=== PATIENT | male | born 1950 | race Caucasian/White ===

== ENCOUNTER 2017-01-26 07:11 | Inpatient (IN) ==
[~2017-01-26 07:11] MED LIST: ACETAMINOPHEN 500 MG TABLET PO ONE; CLINDAMYCIN PB 900 MG/50 ML BAG IV ONE; DEXAMETHASONE 4 MG/ML INJECTION IVP ONE; FAMOTIDINE PB 20 MG/50 ML BAG IV ONE; LIDOCAINE 1% (10mg/ml) 2mL INJ PF SDV ID ONE; METOCLOPRAMIDE 10mg/2ml INJECTION IVP ONE; NOZIN NASAL SWAB NAS ONE; ONDANSETRON 4 MG/2 ML INJECTION IVP ONE; TRANEXAMIC ACID 1,000 MG in NS 100 ML IV ONE
[2017-01-26] MEDS ORDERED: VANCOMYCIN 1,000 MG INJECTION ONE (07:17)
--- OUTSIDE RECORDS SUMMARY | 2017-01-26 07:18 | External Medical Summary | Referral Summary ---
:1950 Author Organization [facility], [facility] Address [address] [place] [address] [place] [id number] Care Team Providers Name Role Phone No PCP, States Primary Care Physician Encounter VC Date(s): 07/18/16 - 07/18/16 [facility], [address] [place] [phone] [place] Discharge Diagnosis: Elevated blood pressure Discharge Diagnosis: Nasopharyngitis Discharge Disposition: 01-Home or Self Care Attending Physician: Yony Carrera DO Admitting Physician: Yony Carrera DO Vital Signs Most recent to oldest [Reference Range]: 1 Temperature Tympanic [36.6-38.1 degC] 36.7 degC (07/18/16 11:01 AM) Peripheral Pulse Rate [60-100 bpm] 89 bpm (07/18/16 11:01 AM) Blood Pressure [90-140/60-90 mmHg] 152/98 mmHg *HI* (07/18/16 11:01 AM) SpO2 94 % (07/18/16 11:01 AM) Problem List Condition Effective Dates Status Health Status Informant Obesity(Confirmed) Active patient Allergies, Adverse Reactions, Alerts Substance Reaction Severity Status penicillin hives Active Medications citalopram Oral, Daily, 0 Refill(s) Start Date: 07/18/16 Status: OrderedDayQuil Cough mg, Oral, q8hr, 0 Refill(s) Start Date: 07/18/16 Status: OrderedNyquil Cold & Flu caps, Oral, q6hr, 0 Refill(s) Start Date: 07/18/16 Status: Ordered Results No data available for this section Immunizations No data available for this section Procedures No data available for this section Social History Social History Type Response Smoking Status Never smoker Assessment and Plan Extracted from: Title: Office Visit Note Author: Yony Carrera DO Date: 07/18/16 Assessment/Plan 1.Nasopharyngitis 1. This appears to be viral. 2. Continue with supportive care 3. follow up if worsening Ordered: Office Visit Level 3 Est 56953 2.Elevated blood pressure 1. Discontinue with the decongestant use. 2. Follow up in the office when feeling better. If pressures continue to be elevated then we plan on starting him on blood pressure medication. Ordered: Office Visit Level 3 Est 37621
--- NOTE | 2017-01-26 07:49 | Anesthesia Preoperative Report ---
Anesthesia Preoperative Record - Date and Time Date: 01/26/17 Preoperative Diagnosis: Primary degen arthritis/DJD Rt knee, M17.11 NPO Since Date: 01/25/17 NPO Since Time: 22:00 Allergies/Adverse Reactions: Allergies Allergy/AdvReac Type Severity Reaction Status Date / Time doxycycline AdvReac Intermediate UPSET Verified 12/30/16 15:51 STOMACH Penicillins AdvReac Intermediate HIVES Verified 12/30/16 15:51 naproxen [From Aleve] AdvReac Unknown Hypertensio Verified 01/14/17 13:55 n - Vital Signs Vital Signs: Temperature 97.8 F 01/26/17 07:26 Pulse Rate 49 L 01/26/17 07:40 Respiratory Rate 18 01/26/17 07:26 Blood Pressure 139/75 01/26/17 07:26 Pulse Oximetry 94 01/26/17 07:26 Oxygen Delivery Method Room Air Height and Weight: Height 1.92 m Weight 110.6 kg Body Mass Index 30.0 - Medications Inpatient Medications: Current Medications Lactated Ringer's (Lactated Ringers) 1,000 mls @ 50 mls/hr IV .Q20H DOROTEO Epinephrine HCl 0.25 mg/Bupivacaine HCl 30 ml/Morphine Sulfate 15 mg/Ketorolac Tromethamine 60 mg/Sodium Chloride 65.25 mls @ 0 mls/hr OPSITE INTRAOP ONE; Per Protocol PRN Reason: Protocol Stop: 01/26/17 08:01 Sodium Chloride (Iv Flush) 10 - 80 ml IVF PRN PRN PRN Reason: Flushing Home Medications: Home Medications Medication Instructions Recorded Confirmed Type Citalopram Hydrobromide 20 mg PO DAILY #0 tab 07/20/16 01/26/17 History [Citalopram HBr] Chlorthalidone 25 mg PO Q2D 01/14/17 01/26/17 History Lisinopril 20 mg PO DAILY 01/14/17 01/26/17 History Metoprolol Succinate 50 mg PO DAILY 01/14/17 01/26/17 History Simvastatin [Simvastatin] 20 mg PO HS 01/14/17 01/26/17 History Vitamin B Complex [Super B-50 1 cap PO DAILY 01/14/17 01/26/17 History Complex] Is Patient on Beta Curtis?: Yes Beta Curtis Last Dose Date/Time: 01/26/2017 @ 0630 - Medical History Respiratory: Reports: Sleep Apnea (no CPAP), Other (allergies) Cardiovascular: Reports: Hypertension, High Cholesterol Gastrointestional: Reports: Gastroesophageal Reflux Disease (well controlled), Morbid Obesity (obese with BMI 30) Neuro/Musculoskeletal: Reports: Depression Other History: Reports: Other (anemia) - Surgical History GI Surgery/Treatments: Reports: Appendectomy, Colonoscopy (x2), EGD Musculoskeletal Surgery/Tx: Reports: Carpal Tunnel Release (bilateral), Knee Arthroscopy, Other (trigger finger release) Anesthesia Reactions: None Hx Family Anesthesia Reaction: No History of Motion Sickness: No - Social History Smoking Status: Never smoker Hx Chewing Tobacco Use: No Second Hand Exposure: No Substance Use Type: does not use Alcohol Intake Frequency: does not drink - Pertinent Findings Laboratory: CBC and BMP 01/26/17 07:36 - Physical Exam Respiratory Exam: Present: lungs clear, bilateral breath sounds equal Cardiovascular Exam: Present: regular rate and rhythm - Airway Assessment Mallampati Score: I TMD: 3 Fingerbreadths Neck Extension: fair Overall Assessment: no airway concerns - ASA ASA Score: 3 - Plan Plan: SAB vs GA with adductor canal block Anesthesia: General Inhalation Gases, Regional Block, Neuroaxial Peripheral Nerve Block: Saphenous-Right - Discussion Discussion: Discussed risks/options/alternatives of anesthesia and questions answered. Patient consents. Nursing pain assessment noted. Attestation Statement: Prior to the delivery of any anesthetic medication, I examined the patient, developed the plan, obtained the patient's consent and discussed the risk and benefits of the procedure with the patient/guardian. - Additional Information Seen by Anesthesia: Yes
[2017-01-26] MEDS: LR 1,000 ML IV SCH ×2 (07:55→10:08)
[2017-01-26] MEDS ORDERED: EPINEPHrine 0.25 MG, BUPIVACAINE 0.25% PF 30 ML, MORPHINE SULFATE 15 MG, KETOROLAC INJ ... OPSITE ONE (08:00)
[2017-01-26] MEDS ORDERED: FentaNYL 100 MCG/2 ML INJECTION ONE (08:30)
[2017-01-26] MEDS ORDERED: MIDAZOLAM 2mg/2ml INJECTION ONE (08:30)
[2017-01-26] MEDS ORDERED: KETAMINE 500 MG/10 ML INJECTION ONE (08:30)
[2017-01-26] MEDS ORDERED: ROPIVACAINE 0.5% (5mg/ml) 30ml INJ ONE (08:31)
[2017-01-26] MEDS ORDERED: PROPOFOL 500 MG/50 ML VIAL IV ONE ×2 (08:31→09:55)
[2017-01-26] MEDS ORDERED: GLYCOPYRROLATE 0.4 MG/2 ML INJECTION ONE (09:14)
[2017-01-26] MEDS ORDERED: EPHEDRINE 50mg/ml INJECTION ONE (09:52)
[2017-01-26] MEDS ORDERED: HYDROMORPHONE 2 MG/ML INJECTION IVP PRN (10:19)
[2017-01-26] MEDS ORDERED: VANCOMYCIN 1,000 MG INJECTION IAR ONE (11:01)
[2017-01-26] MEDS ORDERED: PROPOFOL 20 ML ONE (11:06)
--- NOTE | 2017-01-26 11:21 | Operative Note ---
- Procedure Side: right Preoperative Diagnosis: knee primary DJD Postoperative Diagnosis: Same as preoperative diagnosis. Operation: total knee arthroplasty Surgeon: Rand Irizarry MD Product Inspection Supervisor: Josep Herrera Complications: None. Regional/Trunk Block: Spinal Peripheral Nerve Block: Saphenous-Right Estimated Blood Loss: See Anesthesia Record. Fluids: Please see Anesthesia Record. Description of Procedure: Mr. Saldivar and his right knee were identified and marked in the preoperative holding area. He was brought back to the operating suite and placed supine on the operating table after spinal anesthetic was administered. The right lower extremity was prepped and draped in my normal sterile fashion. Timeout was performed. He has fixed varus deformity. An anterior midline incision followed by medial parapatellar arthrotomy was performed. He had complete loss of cartilage in the medial compartment. He had significant osteophyte formation both medially and laterally. As well as around the patella. I then placed the tibial array due to poke holes in the mid tibia. The femoral array was placed into the medial femoral metaphysis area checkpoints were placed and the bone was pressure with the robot. The knee was taken through range of motion is deformity was corrected in extension and flexion. We then balanced the knee using the preoperative CT scan by rotating R femur and placing our tibia and agree with varus. The patella was then resurfaced with the knee in extension. With the knee back in flexion our bone cuts were made using the robotic arm. At this point remaining osteophytes and meniscus were removed the trial components were placed. After a partial release of the PCL he was well balanced and patella tracked well. The leg was exsanguinated and the tourniquet inflated 250 mmHg. The bone wasn't prepared for cementing and components were cemented into place and allowed to cure in extension. Joint cocktail was injected throughout soft tissue during the case. Betadine solution was also used for irrigation during the case. The tourniquet was let down and hemostasis obtained with electrocautery. After the cement had cured knee again was taken through range of motion was well balanced and patella tracked well. 1 g of vancomycin was placed into the knee joint before the capsulotomy was closed with #1 Vicryl. The left my life enrichment assistant closed subcutaneous tissue with 2-0 Vicryl in a running 4- 0 Monocryl in the skin followed by Dermabond and a sterile dressing. The drapes removed and he was taken to recovery room under the care of anesthesia.
--- NOTE | 2017-01-26 11:37 | History & Physical Update ---
- History and Physical Update Date: 01/26/17 Update: I evaluated this patient and found no changes in the history and clinical exam findings. The treatment plan and recommendations are also unchanged from the previous documentation.
--- NOTE | 2017-01-26 12:03 | Anesthesia Procedure Note ---
Peripheral Nerve Blockade - Procedure Physician: Derrick Irizarry MD Date: 01/26/17 Discussion: Discussed risks/options/alternatives of anesthesia and questions answered. Patient consents. Nursing pain assessment noted. Block Start: 11:51 Block Stop: 11:55 Blocked Employed: Adductor Canal, Single Injection Indication: Post-Operative Pain Approach: Right Side Confirmed Position: Supine Patient: Consent, Risks/Benefits Discussed, Informed, Post Block Act. Discussed IV Sedation: No (post op) Sedation: Sedate w/Meaningful Contact Initial Vital Signs: Temperature 97.8 F 01/26/17 07:26 Temperature Source Oral 01/26/17 07:26 Pulse Rate 57 L 01/26/17 07:26 Respiratory Rate 18 01/26/17 07:26 Blood Pressure 139/75 01/26/17 07:26 Blood Pressure Mean 96 01/26/17 07:26 Blood Pressure Position Sitting 01/26/17 07:26 Pulse Oximetry 94 01/26/17 07:26 Oxygen Delivery Method 01/26/17 07:26 Post Vital Signs: Temperature 97.8 F 01/26/17 07:26 Pulse Rate 49 L 01/26/17 07:40 Respiratory Rate 18 01/26/17 07:26 Blood Pressure 139/75 01/26/17 07:26 Pulse Oximetry 94 01/26/17 07:26 Oxygen Delivery Method Room Air Prep: Chlorhexadine/ETOH, Sterile Technique Ultrasound Used?: Yes - Nerve Simulator Muscle Response: No Paresthesia/Pain: None - Injectate Ropivacaine (%): 0.5 Ropivacaine (mL): 20 Was Epi 1:200,000 Used?: No Injection: Injection made incrementally with constant monitoring and aspiration every ml
--- NOTE | 2017-01-26 12:28 | XRay Report ---
Indication: postoperative image PROCEDURE: XR knee RT 2V: Encounter: Initial Comparison: September 16, 2016 Findings: Postoperative changes of right total knee replacement are seen. There is expected postoperative subcutaneous gas. No evidence of hardware failure or acute fracture. No retained radiopaque surgical instruments or sponges. Overlying material causing artifact. Impression: New right total knee prosthesis without evidence of immediate complication. .
[2017-01-26] MEDS ORDERED: LORazepam 1 MG TABLET PO PRN (12:40)
[2017-01-26] MEDS ORDERED: DiphenhydrAMINE 50 MG/ML INJECTION IVP PRN (12:40)
[2017-01-26] MEDS ORDERED: ONDANSETRON 4 MG/2 ML INJECTION IVP PRN (12:40)
[2017-01-26] MEDS ORDERED: DiphenhydrAMINE 25 MG CAPSULE PO PRN (12:40)
[2017-01-26] MEDS ORDERED: NOZIN NASAL SWAB NAS ONE (12:40)
[2017-01-26] MEDS ORDERED: NAPROXEN 220 MG TABLET PO PRN (12:40)
[2017-01-26] MEDS: NS 1,000 ML IV SCH (12:41)
--- NOTE | 2017-01-26 12:42 | Anesthesia Postoperative Note ---
- Date and Time Date: 01/26/17 Time: 12:20 - Status Patient Participated in Evaluation: Patient Participated in Person Vital Signs: Temperature 96.8 F 01/26/17 12:24 Pulse Rate 51 L 01/26/17 12:20 Respiratory Rate 15 01/26/17 12:20 Blood Pressure 97/56 01/26/17 12:20 Pulse Oximetry 95 01/26/17 12:20 Oxygen Delivery Method Nasal Cannula Oxygen Flow Rate 2 Respiratory Function: Airway Patent, Regular Respirations Cardiovascular Function: Regular Pulse Mental Status: Alert and Oriented Pain Intensity: 0 Hydration: IV Infusing Complications During Recover: None Apparent - Follow-Up Instructions Instructions: Per Surgeon
[2017-01-26] MEDS: CHLORTHALIDONE 25 MG TABLET PO SCH (12:44)
[2017-01-26] MEDS: ACETAMINOPHEN 325 MG TABLET PO SCH ×3 (12:44→21:15)
[2017-01-26] MEDS: NOZIN NASAL SWAB NAS SCH ×2 (13:02→21:15)
[2017-01-26] MEDS: Oxycodone *IR* 5 MG TABLET PO PRN ×2 (14:06→22:36)
[2017-01-26] MEDS: CLINDAMYCIN PB 900 MG/50 ML BAG IV SCH ×2 (14:59→21:14)
[2017-01-26] MEDS ORDERED: SALINE FLUSH 10ml SYRINGE IVF PRN (15:27)
[2017-01-26] MEDS ORDERED: FAMOTIDINE 20 MG TABLET PO SCH (21:00)
[2017-01-26] MEDS ORDERED: SENNOSIDES 8.6 MG TABLET PO SCH (21:00)
[2017-01-26] MEDS ORDERED: SIMVASTATIN 20 MG TABLET PO SCH (21:00)
[2017-01-26] MEDS: ASPIRIN *EC* 325 MG TABLET PO SCH (21:16)
[2017-01-26] MEDS: DOCUSATE SODIUM 100 MG CAPSULE PO SCH (21:16)
[2017-01-27] MEDS: NS 1,000 ML IV SCH (02:53)
[2017-01-27] MEDS: CLINDAMYCIN PB 900 MG/50 ML BAG IV SCH (02:54)
[2017-01-27] MEDS: NOZIN NASAL SWAB NAS SCH ×2 (05:40→15:44)
[2017-01-27] MEDS: Oxycodone *IR* 5 MG TABLET PO PRN ×3 (05:48→13:27)
[2017-01-27] MEDS ORDERED: FALL RISK - PHARMACY CONSULT XX ONE (07:45)
--- NOTE | 2017-01-27 07:55 | Orthopedic Progress Note ---
Date: Subjective/Severity of Illness: Shawn is doing well. He has only needed a couple doses of pain medication and states he prefers not to take anything. Denies CP, SOA or dypsnea. He reports that he has a cough with allergies this time of year. He was up several times with good tolerance. No other concerns or problems. Orthopedic Objective PO Vital signs: Temperature 97.7 F 01/27/17 07:48 Pulse Rate 55 L 01/27/17 07:48 Respiratory Rate 20 01/27/17 07:48 Blood Pressure 146/72 H 01/27/17 07:48 Pulse Oximetry 97 01/27/17 07:48 Height and Weight: Height 6 ft 3.5 in Weight 215 lb 6.266 oz Body Mass Index 30.0 - Constitutional General Appearance: Present: alert, no acute distress - Respiratory Exam Present: non-labored - Cardiovascular Exam Present: pedal pulses intact Capillary Refill: < 2-3 Seconds - Extremities Exam Extremities: Present: pulses intact. Absent: calf tenderness - Surgical Site Incision: Mepilex dressing intact, no drainage - Neurological Exam Present: no deficits - Psychiatric Exam Present: alert - Labs Result Diagrams: 01/27/17 04:12 01/27/17 04:12 Abnormal lab results 01/26/17 01/27/17 01/27/17 Range/Units 07:36 04:12 04:12 WBC 13.9 H D (4.5-11.0) T/MM3 RBC 3.72 L (4.50-5.90) M/MM3 Hgb 11.8 L D (13.5-17.5) GM/DL Hct 35.0 L D (41-53) % BUN 22.0 H 23.0 H (9-20) MG/DL Glucose 135 H (75-110) MG/DL Calculated Osmolality 281 H (261-280) MOSM/KG Calcium 8.3 L (8.4-10.2) MG/DL H & H 01/26/17 01/27/17 Range/Units 07:36 04:12 Hgb 13.5 11.8 L D (13.5-17.5) GM/DL Hct 40.9 L 35.0 L D (41-53) % Orthopedic Assessment and Plan (1) Primary osteoarthritis of right knee Status: Acute Assessment and Plan: Current anti-coagulation protocol for VTE prophylaxis. SCD's. WBC slightly elevated. Expected to be a stress response to surgery and IV steroids pre op. He is afebrile and has no clinical s/sx of infection. PT/OT services to improve independent function. Discharge Planning per Case Management. - Anticoagulation Therapy Anticoagulation: ASA 325 mg PO BID x6 weeks Hospital Course Summary Disclaimer: The visit summary below is not to be considered part of the above Progress Note.
[2017-01-27] MEDS: DOCUSATE SODIUM 100 MG CAPSULE PO SCH (08:57)
[2017-01-27] MEDS: ASPIRIN *EC* 325 MG TABLET PO SCH (08:57)
[2017-01-27] MEDS: CHLORTHALIDONE 25 MG TABLET PO SCH (08:57)
[2017-01-27] MEDS: ACETAMINOPHEN 325 MG TABLET PO SCH ×2 (08:58→12:14)
[2017-01-27] MEDS ORDERED: LISINOPRIL 20 MG TABLET PO SCH (09:00)
[2017-01-27] MEDS ORDERED: CITALOPRAM 20 MG TABLET PO SCH (09:00)
[2017-01-27] MEDS ORDERED: POLYETHYL GLYCOL 3350 17gm PACKET PO SCH (09:00)
[2017-01-27] MEDS ORDERED: SENNOSIDES 8.6 MG TABLET PO PRN (11:38)
[2017-01-27 12:30] VITALS: BP 117/67; PULSE 49; RESP 16; TEMP 97.3; O2SAT 92
--- NOTE | 2017-01-27 14:55 | Discharge Summary ---
Orthopedic Discharge Info Date of admission: 01/26/17 07:11 Primary care physician: Yony Carrera DO Attending Physician: Derrick Irizarry MD Consults: 01/26/17 06:46 Consult to Anesthesiology [CONS] Routine Consulting Provider: BETH Bhakta Reason For Exam: Preoperative Assessment 01/26/17 12:40 Case Management Consult [CONS] Routine Reason For Exam: Discharge Planning DME-Walker [CONS] Routine Height: 6 ft 3.5 in Weight: 243 lb 13.3 oz Comment: change dressing in 2 weeks Total Joint Outpatient Therapy [CONS] Routine Comment: change dressing in 2 weeks - Discharge Diagnosis (1) Primary osteoarthritis of right knee Status: Acute - Procedures Procedures: Right TKA - Laboratory Result Diagrams: 01/27/17 04:12 01/27/17 04:12 Laboratory: Abnormal lab results 01/27/17 01/27/17 Range/Units 04:12 04:12 WBC 13.9 H D (4.5-11.0) T/MM3 RBC 3.72 L (4.50-5.90) M/MM3 Hgb 11.8 L D (13.5-17.5) GM/DL Hct 35.0 L D (41-53) % BUN 23.0 H (9-20) MG/DL Glucose 135 H (75-110) MG/DL Calcium 8.3 L (8.4-10.2) MG/DL H & H 01/26/17 01/27/17 Range/Units 07:36 04:12 Hgb 13.5 11.8 L D (13.5-17.5) GM/DL Hct 40.9 L 35.0 L D (41-53) % Orthopedic Discharge HPI - HPI Comments This patient was admitted for elective surgical tx of end stage degenerative joint disease that failed to respond to conservative treatment. Further details of this is found in the admission H&P. Orthopedic Hospital Course Hospital course: 01/27/17 14:54 After appropriate preoperative clearance and signing of operative consent, the patient was given IV antibiotics, according to orthopedic protocol. The patient was taken to the operating room and underwent elective joint arthroplasty. Following surgery, antibiotics were discontinued less than 24 hours according to joint protocol. Appropriate anticoagulants were initiated and SCDs added for DVT prevention. The dressing was clean, dry, and intact. Pain control was obtained via multimodal approach. Bowel motivation addressed with scheduled and PRN medications. Early mobilization was initiated through PT services. Discharge arrangements made by a collaborative effort between the patient and Case Management. Follow-up is scheduled in 2-3 weeks. Discharge instructions given by orthopedic providers and nursing staff at discharge. Discharge condition was good. Ongoing care required?: Yes - Postoperative Anemia patient received IVF, labs monitored daily, no intervention required, HGB drop- acceptable - Leukocytosis due to preoperative IV Decadron Discharge Plan - Med Rec/Dispo Referrals/Follow Up: Derrick Irizarry MD [Physician] - 02/17/17 1:00 pm Additional Instructions: [facility] ON 01/29/2017 AT 9:45AM FOR PHYSICAL THERAPY EVAL. PLEASE COMPLETE THE PAPERWORK IN THE [facility] [place]IOR TO THE APPOINTMENT. PHONE [phone] Prescriptions: No Action Citalopram Hydrobromide [Citalopram HBr] 20 mg PO DAILY #0 tab Famotidine 20 mg PO HS #30 tab Lisinopril 20 mg PO DAILY Chlorthalidone 25 mg PO Q2D Aspirin [Aspirin EC] 1 tab PO DAILY #100 tab Metoprolol Succinate 50 mg PO DAILY Simvastatin [Simvastatin] 20 mg PO HS Vitamin B Complex [Super B-50 Complex] 1 cap PO DAILY
--- NOTE | 2017-01-27 14:59 | Discharge Instructions ---
Discharge Plan - Med Rec/Dispo Referrals/Follow Up: Derrick Irizarry MD [Physician] - 02/17/17 1:00 pm Additional Instructions: [facility] ON 01/29/2017 AT 9:45AM FOR PHYSICAL THERAPY ISSA. PLEASE COMPLETE THE PAPERWORK IN THE [facility] [place] [facility] PRIOR TO THE APPOINTMENT. PHONE [phone] Prescriptions: New Aspirin *EC* [Ecotrin] 325 mg PO BID #60 tab Oxycodone *Ir* [Roxicodone *Ir*] 5 - 15 mg PO Q3H PRN #60 tab PRN Reason: Breakthrough Pain Acetaminophen [Tylenol] 650 mg PO QID #100 tab Continue Citalopram Hydrobromide [Citalopram HBr] 20 mg PO DAILY #0 tab Famotidine 20 mg PO HS #30 tab Lisinopril 20 mg PO DAILY Chlorthalidone 25 mg PO Q2D Metoprolol Succinate 50 mg PO DAILY Simvastatin 20 mg PO HS Vitamin B Complex [Super B-50 Complex] 1 cap PO DAILY Discontinued Aspirin [Aspirin EC] 1 tab PO DAILY #100 tab - Disposition 01 Discharged Home, Self-Care
[2017-01-28] MEDS ORDERED: BISACODYL 10 MG SUPPOSITORY RECTALLY SCH (20:00)
== END 2017-01-27 15:30 | disposition home or self-care (01) | DRG 470 ==
LOC: SRG 07:11
PROVIDERS: ADMIT Orthopaedic Surgery; ATTEND Orthopaedic Surgery

== ENCOUNTER 2017-02-25 07:30 | Inpatient (IN) ==
[2017-04-29] MEDS ORDERED: ACETAMINOPHEN 500 MG TABLET PO ONE (06:00)
[2017-04-29] MEDS ORDERED: ONDANSETRON 4 MG/2 ML INJECTION IVP ONE (06:00)
[2017-04-29] MEDS ORDERED: METOCLOPRAMIDE 10mg/2ml INJECTION IVP ONE (06:00)
[2017-04-29] MEDS ORDERED: TRANEXAMIC ACID 1,000 MG in NS 100 ML IV ONE ×2 (06:00→07:00)
[2017-04-29] MEDS ORDERED: LIDOCAINE 1% (10mg/ml) 2mL INJ PF SDV ID ONE (06:00)
[2017-04-29] MEDS ORDERED: NOZIN NASAL SWAB NAS ONE ×2 (06:00→14:54)
[2017-04-29] MEDS ORDERED: FAMOTIDINE PB 20 MG/50 ML BAG IV ONE (06:00)
[2017-04-29] MEDS ORDERED: DEXAMETHASONE 4 MG/ML INJECTION IVP ONE (06:00)
[2017-04-29] MEDS ORDERED: CLINDAMYCIN PB 900 MG/50 ML BAG IV ONE (06:00)
[2017-04-29] MEDS ORDERED: EPINEPHrine PF 0.25 MG, BUPIVACAINE 0.25% PF 30 ML, MORPHINE SULFATE 15 MG, KETOROLAC I... OPSITE ONE (08:00)
[2017-04-29 10:13] VITALS: BMI 29.8
[2017-04-29] MEDS: LR 1,000 ML IV SCH ×2 (10:37→13:19)
--- NOTE | 2017-04-29 11:14 | Anesthesia Preoperative Report ---
Anesthesia Preoperative Record - Date and Time Date: 04/29/17 Preoperative Diagnosis: Lt TKA M17.12 Proposed Procedure: Left TKA NPO Since Date: 04/28/17 NPO Since Time: 21:00 Allergies/Adverse Reactions: Allergies Allergy/AdvReac Type Severity Reaction Status Date / Time doxycycline AdvReac Intermediate UPSET Verified 04/29/17 10:19 STOMACH Penicillins AdvReac Intermediate HIVES Verified 04/29/17 10:19 naproxen [From Aleve] AdvReac Unknown Hypertensio Verified 04/29/17 10:19 n - Vital Signs Vital Signs: Temperature 97.4 F 04/29/17 10:10 Pulse Rate 63 04/29/17 10:10 Respiratory Rate 16 04/29/17 10:10 Blood Pressure 143/71 H 04/29/17 10:10 Pulse Oximetry 94 04/29/17 10:10 Height and Weight: Height 6 ft 3 in Weight 108.4 kg Body Mass Index 29.8 - Medications Inpatient Medications: Current Medications Lactated Ringer's (Lactated Ringers) 1,000 mls @ 50 mls/hr IV .Q20H DOROTEO Last Admin: 04/29/17 10:37 Dose: 50 mls/hr Sodium Chloride (Iv Flush) 10 - 80 ml IV PRN PRN PRN Reason: Flushing Home Medications: Home Medications Medication Instructions Recorded Confirmed Type Citalopram Hydrobromide 20 mg PO DAILY #0 tab 07/20/16 04/29/17 History [Citalopram HBr] Chlorthalidone 25 mg PO Q2D 01/14/17 04/29/17 History Lisinopril 20 mg PO DAILY 01/14/17 04/29/17 History Metoprolol Succinate 50 mg PO DAILY 01/14/17 04/29/17 History Simvastatin 20 mg PO HS 01/14/17 04/29/17 History Vitamin B Complex [Super B-50 1 cap PO DAILY 01/14/17 04/29/17 History Complex] Aspirin [Aspirin EC] 81 mg PO DAILY 04/29/17 04/29/17 History Famotidine 20 mg PO DAILY 04/29/17 04/29/17 History Is Patient on Beta Curtis?: Yes Beta Curtis Last Dose Date/Time: 04/29/17 - Medical History Respiratory: Reports: Sleep Apnea, Other (allergies) DENIES: Asthma, Bronchitis, Chronic Obstructive Pulmonary Disease (COPD), Dyspnea, Orthopnea, Pulmonary Embolism, Pneumonia, Upper Respiratory Infection, Pulmonary Edema, Tuberculosis Cardiovascular: Reports: Abnormal EKG (bradycardia), Hypertension, High Cholesterol, Valvular Heart Disease (mitral valve) DENIES: Angina, Arrhythmia, Congestive Heart Failure, Coronary Artery Disease , Heart Murmur, Hypotension, Myocardial Infarction, Rheumatic Fever, Other Gastrointestional: Reports: Gastroesophageal Reflux Disease DENIES: Obstructive Bowel, Hepatitis, Cirrhosis, Nausea or Vomiting Present, Gastrointestinal Bleeding, Hiatal Hernia, Ulcer, Morbid Obesity, Other Neuro/Musculoskeletal: Reports: HX.MS.OSAR, Back Problems (hx cervical radiculopathy per h&p--pt denies), Depression Denies: Cerebrovascular Accident, Headaches, Loss of Consciousness, Muscle Weakness, Neuromuscular Disorder, Paralysis, Paresthesia, Syncope, Seizures, Other Renal/Endocrine: DENIES: Diabetes Mellitus Type 1, Diabetes Mellitus Type 2, Renal Failure, Dialysis, Thyroid Disease, Weight Loss, Weight Gain, Other Other History: Reports: Other (anemia) DENIES: Anesthesia Reactions, Now, Blood Transfusions, Chemotherapy , Cancer, Hemophilia, Malignant Hyperthermia, Sickle Cell Disease - Surgical History HEENT Surgeries: Reports: Oral Surgery (surgery to "shrink swelling in throat") GI Surgery/Treatments: Reports: Appendectomy, Colonoscopy (x2), EGD Musculoskeletal Surgery/Tx: Reports: Carpal Tunnel Release (bilateral), Knee Arthroscopy (right), Total Knee Replacement ([id number]) Anesthesia Reactions: None Hx Family Anesthesia Reaction: No History of Motion Sickness: No - Social History Smoking Status: Never smoker Hx Chewing Tobacco Use: No Second Hand Exposure: No Substance Use Type: does not use Alcohol Intake: current Alcohol Intake Frequency: holidays/special occasions only - Pertinent Findings Laboratory: CBC and BMP 04/29/17 10:18 04/29/17 10:18 BMP 04/29/17 10:18 Sodium 143 Potassium 4.3 Chloride 105 Carbon Dioxide 26 BUN 19.0 Creatinine 1.1 Glucose 109 Calcium 9.2 EKG: Sinus Rhythm - Physical Exam Respiratory Exam: Present: lungs clear, bilateral breath sounds equal Cardiovascular Exam: Present: regular rate and rhythm, no murmur - Airway Assessment Mallampati Score: I TMD: 3 Fingerbreadths Neck Extension: good Overall Assessment: no airway concerns - ASA ASA Score: 2 - Plan Anesthesia: Neuroaxial Regional/Trunk Block: Spinal Peripheral Nerve Block: Saphenous-Left - Discussion Discussion: Discussed risks/options/alternatives of anesthesia and questions answered. Patient consents. Nursing pain assessment noted. Present for Discussion: spouse Attestation Statement: Prior to the delivery of any anesthetic medication, I examined the patient, developed the plan, obtained the patient's consent and discussed the risk and benefits of the procedure with the patient/guardian. - Additional Information Seen by Anesthesia: Yes
[2017-04-29] MEDS ORDERED: MIDAZOLAM 2mg/2ml INJECTION ONE (11:35)
[2017-04-29] MEDS ORDERED: FentaNYL 100 MCG/2 ML INJECTION ONE (11:36)
[2017-04-29] MEDS ORDERED: KETAMINE 500 MG/10 ML INJECTION ONE (11:48)
[2017-04-29] MEDS ORDERED: PROPOFOL 500 MG/50 ML VIAL IV ONE (11:48)
[2017-04-29] MEDS ORDERED: DiphenhydrAMINE 50 MG/ML INJECTION ONE (12:45)
[2017-04-29] MEDS ORDERED: PROPOFOL 20 ML ONE (13:07)
[2017-04-29] MEDS ORDERED: SALINE FLUSH 10ml SYRINGE ONE (13:09)
[2017-04-29] MEDS ORDERED: VANCOMYCIN 1,000 MG INJECTION IAR ONE (13:10)
--- NOTE | 2017-04-29 13:15 | Operative Note ---
- Procedure Preoperative Diagnosis: Left knee primary degenerative joint disease Postoperative Diagnosis: Same as preoperative diagnosis. Surgeon: Rand Irizarry MD Specification Consultant: Josep Herrera Complications: None. Anesthesia: Spinal. Estimated Blood Loss: See Anesthesia Record. Fluids: Please see Anesthesia Record. Desciption of Procedure: Mr. Saldivar and his left knee were identified and marked in the preoperative holding area. He was brought back to the operating suite after a saphenous nerve block was placed in the preoperative holding area. Spinal anesthetic was administered and he was placed supine on the operating table. The left lower extremity was prepped and draped in my normal sterile fashion. Timeout was performed. The [employer] robot was used during the surgery. He had a correctable valgus deformity with a slight flexion contracture. A standard anterior midline incision followed by medial parapatellar arthrotomy was performed. Anterior fat pad and meniscus were removed. The patella was resurfaced to a size 35. Tibial and femoral arrays were placed both within the original incision. Checkpoints were then placed both in the femur and the tibia. The bone was then registered with the [employer] robot. Osteophytes were removed and gaps were captured both 90 and 0 with correction. [employer] robotic software was used to manipulate components to obtain 19 mm gaps throughout. The [employer] robotic arm was then used to assist with the bone cuts. Posterior osteophytes and remaining meniscus were removed. Trial components were placed. We used a 5 femur and a 6 tibia with a 11 mm spacer. He tracked well and was well balanced throughout range of motion. The tibia was stamped at the proper rotation. Trial components fit well and bone quality was adequate so we proceeded with press-fit components. Components were press-fit into place. A final spacer was also placed. The knee was ranged one more time to ensure good stability, balance and patellar tracking. 1 g of vancomycin powder was then placed into the knee joint. The capsulotomy was then closed with #1 Vicryl. I then left my review assistant to close the subcutaneous tissue with 2-0 Vicryl. Running 4-0 Monocryl will be used in the subcuticular layer. Dermabond will be used on the skin followed by sterile dressing. After drapes are removed patient will be taken to recovery room under the care of anesthesia.
[2017-04-29] MEDS ORDERED: ROPIVACAINE 0.5% (5mg/ml) 30ml INJ ONE (13:25)
--- NOTE | 2017-04-29 13:47 | Anesthesia Procedure Note ---
Peripheral Nerve Blockade - Procedure Physician: Derrick Irizarry MD Date: 04/29/17 Surgical Procedure: Left TKA Discussion: Discussed risks/options/alternatives of anesthesia and questions answered. Patient consents. Nursing pain assessment noted. Block Start: 13:40 Block Stop: 13:45 Blocked Employed: [employer] Indication: Post-Operative Pain Approach: Left Side Confirmed Position: Supine Patient: Consent, Risks/Benefits Discussed, Informed, Post Block Act. Discussed IV Sedation: No (Spinal Intact) Initial Vital Signs: Temperature 97.4 F 04/29/17 10:10 Temperature Source Oral 04/29/17 10:10 Pulse Rate 63 04/29/17 10:10 Respiratory Rate 16 04/29/17 10:10 Blood Pressure 143/71 H 04/29/17 10:10 Blood Pressure Mean 95 04/29/17 10:10 Blood Pressure Position Sitting 04/29/17 10:10 Pulse Oximetry 94 04/29/17 10:10 Oxygen Delivery Method 04/29/17 10:10 Post Vital Signs: Temperature 97.4 F 04/29/17 10:10 Pulse Rate 63 04/29/17 10:10 Respiratory Rate 16 04/29/17 10:10 Blood Pressure 143/71 H 04/29/17 10:10 Pulse Oximetry 94 04/29/17 10:10 Initial Pain Pain Score: 0 Post Block Pain Score: 0 Prep: Chlorhexadine/ETOH Ultrasound Used?: Yes - Injectate Ropivacaine (%): 0.5 Ropivacaine (mL): 15 Injection: Injection made incrementally with constant monitoring and aspiration every ml
--- NOTE | 2017-04-29 13:48 | Anesthesia Postoperative Note ---
- Date and Time Date: 04/29/17 Time: 13:47 - Status Patient Participated in Evaluation: Patient Participated in Person Vital Signs: Temperature 97.4 F 04/29/17 10:10 Pulse Rate 63 04/29/17 10:10 Respiratory Rate 16 04/29/17 10:10 Blood Pressure 143/71 H 04/29/17 10:10 Pulse Oximetry 94 04/29/17 10:10 Respiratory Function: Airway Patent, Regular Respirations EKG: Sinus Rhythm Mental Status: Alert and Oriented Pain Intensity: 0 (spinal) Hydration: IV Infusing Complications During Recover: None Apparent - Follow-Up Instructions Instructions: Per Surgeon
[2017-04-29] MEDS ORDERED: LORazepam 1 MG TABLET PO PRN (14:54)
[2017-04-29] MEDS ORDERED: DiphenhydrAMINE 50 MG/ML INJECTION IVP PRN (14:54)
[2017-04-29] MEDS ORDERED: CHLORTHALIDONE 25 MG TABLET PO SCH (14:54)
[2017-04-29] MEDS ORDERED: ONDANSETRON 4 MG/2 ML INJECTION IVP PRN (14:54)
[2017-04-29] MEDS ORDERED: DiphenhydrAMINE 25 MG CAPSULE PO PRN (14:54)
[2017-04-29] MEDS: NS 1,000 ML IV SCH (15:10)
[2017-04-29] MEDS: NOZIN NASAL SWAB NAS SCH ×2 (15:18→21:18)
[2017-04-29] MEDS ORDERED: SALINE FLUSH 10ml SYRINGE IV PRN (15:32)
[2017-04-29] MEDS ORDERED: FALL RISK - PHARMACY CONSULT MC ONE (16:11)
--- NOTE | 2017-04-29 16:37 | XRay Report ---
Indication: postoperative image PROCEDURE: XR knee LT 2V: Encounter: Initial Comparison: January 20, 2017 Findings: Postoperative changes of left total knee replacement are seen. There is expected postoperative subcutaneous gas. No evidence of hardware failure or acute fracture. No retained radiopaque surgical instruments or sponges. Overlying material causing artifact. Impression: New left total knee prosthesis without evidence of immediate complication. .
[2017-04-29] MEDS: ACETAMINOPHEN 325 MG TABLET PO SCH ×2 (17:20→21:18)
[2017-04-29] MEDS: Oxycodone *IR* 5 MG TABLET PO PRN ×2 (17:20→21:17)
[2017-04-29] MEDS: CLINDAMYCIN PB 900 MG/50 ML BAG IV SCH (17:21)
[2017-04-29] MEDS ORDERED: METOCLOPRAMIDE 10mg/2ml INJECTION IVP PRN (19:00)
[2017-04-29 19:52] VITALS: RESP 16
[2017-04-29] MEDS ORDERED: SENNOSIDES 8.6 MG TABLET PO SCH (21:00)
[2017-04-29] MEDS ORDERED: SIMVASTATIN 20 MG TABLET PO SCH (21:00)
[2017-04-29] MEDS: DOCUSATE SODIUM 100 MG CAPSULE PO SCH (21:18)
[2017-04-29] MEDS: ASPIRIN *EC* 81 MG TABLET PO SCH (21:18)
[2017-04-29] MEDS: DEXAMETHASONE 4 MG/ML INJECTION IVP SCH (21:38)
[2017-04-30] MEDS: CLINDAMYCIN PB 900 MG/50 ML BAG IV SCH ×2 (00:47→05:04)
[2017-04-30] MEDS: Oxycodone *IR* 5 MG TABLET PO PRN ×2 (01:15→08:09)
[2017-04-30] MEDS: DEXAMETHASONE 4 MG/ML INJECTION IVP SCH (04:31)
[2017-04-30] MEDS: NS 1,000 ML IV SCH (05:02)
[2017-04-30] MEDS: NOZIN NASAL SWAB NAS SCH (05:02)
--- NOTE | 2017-04-30 08:43 | Orthopedic Progress Note ---
Date: Subjective/Severity of Illness: Doing very well. No complaints. Expects discharge today. He has been up with good tolerance. Orthopedic Objective PO Vital signs: Temperature 97.8 F 04/30/17 08:00 Pulse Rate 63 04/30/17 08:00 Respiratory Rate 16 04/30/17 08:00 Blood Pressure 136/71 04/30/17 08:00 Pulse Oximetry 92 04/30/17 08:00 Height and Weight: Height 6 ft 3 in Weight 238 lb 15.697 oz Body Mass Index 29.8 - Constitutional General Appearance: Present: alert, cooperative, no acute distress - Respiratory Exam Present: non-labored - Extremities Exam Extremities: Present: pulses intact. Absent: calf tenderness - Surgical Site Incision: Mepilex dressing intact, no drainage - Neurological Exam Present: no deficits - Psychiatric Exam Present: alert, normal affect - Labs Result Diagrams: 04/30/17 04:16 04/30/17 04:16 Abnormal lab results 04/29/17 04/30/17 04/30/17 Range/Units 10:18 04:16 04:16 Hgb 12.3 L (13.5-17.5) GM/DL Hct 38.7 L (41-53) % MPV 9.0 L (9.4-12.4) UM3 Eos % (Auto) 5.5 H (0-4) % BUN 23.0 H (9-20) MG/DL Glucose 143 H (75-110) MG/DL H & H 04/29/17 04/30/17 Range/Units 10:18 04:16 Hgb 13.6 12.3 L (13.5-17.5) GM/DL Hct 42.3 38.7 L (41-53) % Orthopedic Assessment and Plan (1) Primary osteoarthritis of left knee Status: Acute Assessment and Plan: Current anti-coagulation protocol for VTE prophylaxis. SCD's. HR 50's and well tolerated. Glucose 143 likely due to steroids. PT/OT services to improve independent function. Discharge Planning per Case Management. - Anticoagulation Therapy Anticoagulation: ASA 81 mg PO BID x6 weeks Hospital Course Summary Disclaimer: The visit summary below is not to be considered part of the above Progress Note.
[2017-04-30] MEDS ORDERED: CITALOPRAM 20 MG TABLET PO SCH (09:00)
[2017-04-30] MEDS ORDERED: FAMOTIDINE 20 MG TABLET PO SCH (09:00)
[2017-04-30] MEDS ORDERED: LISINOPRIL 20 MG TABLET PO SCH (09:00)
[2017-04-30] MEDS ORDERED: POLYETHYL GLYCOL 3350 17gm PACKET PO SCH (09:00)
[2017-04-30] MEDS: ASPIRIN *EC* 81 MG TABLET PO SCH (09:15)
[2017-04-30] MEDS: ACETAMINOPHEN 325 MG TABLET PO SCH ×2 (09:17→12:47)
[2017-04-30] MEDS: DOCUSATE SODIUM 100 MG CAPSULE PO SCH (09:19)
[2017-04-30 12:32] VITALS: BP 145/78; PULSE 61; TEMP 97.6; O2SAT 91
[2017-04-30] MEDS ORDERED: SENNOSIDES 8.6 MG TABLET PO PRN (13:26)
--- NOTE | 2017-04-30 13:27 | Discharge Summary ---
Orthopedic Discharge Info Date of admission: 04/29/17 09:49 Primary care physician: Yony Carrera DO Attending Physician: Derrick Irizarry MD Consults: 04/29/17 09:46 Consult to Anesthesiology [CONS] Routine Reason For Exam: Preoperative Assessment 04/29/17 14:54 Case Management Consult [CONS] Routine Reason For Exam: Discharge Planning DME-Walker [CONS] Routine Height: 6 ft 3 in Weight: 238 lb 15.697 oz Total Joint Outpatient Therapy [CONS] Routine Comment: Remove dressing in 2 weeks 04/30/17 05:38 Case Management Consult [CONS] Routine Reason For Exam: Noc Ox - Discharge Diagnosis (1) Primary osteoarthritis of left knee Status: Acute - Procedures Procedures: Procedures Left TKA - Laboratory Result Diagrams: 04/30/17 04:16 04/30/17 04:16 Laboratory: Abnormal lab results 04/30/17 04/30/17 Range/Units 04:16 04:16 Hgb 12.3 L (13.5-17.5) GM/DL Hct 38.7 L (41-53) % BUN 23.0 H (9-20) MG/DL Glucose 143 H (75-110) MG/DL H & H 04/29/17 04/30/17 Range/Units 10:18 04:16 Hgb 13.6 12.3 L (13.5-17.5) GM/DL Hct 42.3 38.7 L (41-53) % Orthopedic Discharge HPI - HPI Comments This patient was admitted for elective surgical tx of end stage degenerative joint disease that failed to respond to conservative treatment. Further details of this is found in the admission H&P. Orthopedic Hospital Course Hospital course: 04/30/17 13:24 After appropriate preoperative clearance and signing of operative consent, the patient was given IV antibiotics, according to orthopedic protocol. The patient was taken to the operating room and underwent elective joint arthroplasty. Following surgery, antibiotics were discontinued less than 24 hours according to joint protocol. Appropriate anticoagulants were initiated and SCDs added for DVT prevention. The dressing was clean, dry, and intact. Pain control was obtained via multimodal approach. Bowel motivation addressed with scheduled and PRN medications. Early mobilization was initiated through PT services. Discharge arrangements made by a collaborative effort between the patient and Case Management. Follow-up is scheduled in 2-3 weeks. Discharge instructions given by orthopedic providers and nursing staff at discharge. Discharge condition was good. Ongoing care required?: No Discharge Plan - Med Rec/Dispo Referrals/Follow Up: Derrick Irizarry MD [Physician] - 05/19/17 2:45 pm [place] Instructions: [facility] [place] Ortho Postop Instructions Additional Instructions: [facility] AT 05/03/2017 AT 10:00AM FOR PHYSICAL THERAPY EVAL. PHONE [phone] Prescriptions: New Acetaminophen [Tylenol] 650 mg PO QID tab Aspirin *EC* [Ecotrin] 81 mg PO BID tab Oxycodone *IR* [Roxicodone *Ir*] 5 - 15 mg PO Q3H PRN #60 tab PRN Reason: Breakthrough Pain PEG 3350 17gm PACKET [Miralax] 17 gm PO DAILY packet Continue Citalopram Hydrobromide [Citalopram HBr] 20 mg PO DAILY #0 tab Lisinopril 20 mg PO DAILY Chlorthalidone 25 mg PO Q2D Famotidine 20 mg PO DAILY Metoprolol Succinate 50 mg PO DAILY Simvastatin 20 mg PO HS Vitamin B Complex [Super B-50 Complex] 1 cap PO DAILY Discontinued Aspirin [Aspirin EC] 81 mg PO DAILY - Disposition 01 Discharged Home, Self-Care - Dismissal Complete Discharge Instructions are:: Complete
[2017-05-01] MEDS ORDERED: BISACODYL 10 MG SUPPOSITORY RECTALLY SCH (20:00)
== END 2017-04-30 14:05 | disposition home or self-care (01) | DRG 470 ==
LOC: SRG 04-29 09:49
PROVIDERS: ADMIT Orthopaedic Surgery; ATTEND Orthopaedic Surgery